=== PATIENT | female | born 1960 | race Caucasian/White ===

== ENCOUNTER 2017-03-07 14:31 | Emergency (ER) | payer OTHER ==
[~2017-03-07] VITALS: Wt 70.9 kg
--- NOTE | 2017-03-07 15:14 | ERA ---
ER Documentation Chief Complaint Date/Time DATE: 03/07/17 TIME: 15:04 Chief Complaint cornejo, dizziness, bp at home 190/140 HPI 56-year-old female with a chief complaint of hypertension. Patient states she took her blood pressure at home and it was 180/140. Patient takes benazepril. Patient states that she has not missed any of her medications. Takes aspirin daily. Patient has a history of hypertension hyperlipidemia. Patient states the dizziness occurred 3 days ago and is worse with movement of the head. Patient has no other major complaints and describes no other associated manifestations. No aggravating or alleviating factors disclosed. Nursing notes have been reviewed and are consistent with a history given. ROS All systems reviewed and are negative except as per history of present illness. PMhx/Soc History of Surgery: Yes () Anesthesia Reaction: No Hx Neurological Disorder: No Hx Respiratory Disorders: No Hx Cardiac Disorders: No Hx Psychiatric Problems: No Hx Miscellaneous Medical Probl: Yes (HTN) Hx Alcohol Use: No Hx Substance Use: No Hx Tobacco Use: No Smoking Status: Never smoker Physical Exam Vitals Vital Signs Date Time Temp Pulse Resp B/P Pulse Ox O2 Delivery O2 Flow Rate FiO2 03/07/17 14:33 98.0 111 20 198/78 100 Physical Exam Const: [] Head: Atraumatic Eyes: Normal Conjunctiva ENT: Normal External Ears, Nose and Mouth. Neck: Full range of motion..~ No meningismus. Resp: Clear to auscultation bilaterally Cardio: Regular rate and rhythm, no murmurs Abd: Soft, non tender, non distended. Normal bowel sounds Skin: No petechiae or rashes Back: No midline or flank tenderness Ext: No cyanosis, or edema Neur: Awake and alert Psych: Normal Mood and Affect Results 24 hrs Laboratory Tests Test 03/07/17 15:30 Urine Color COLORLESS Urine Clarity CLEAR Urine pH 7.0 Urine Specific [place] 1.003 Urine Ketones NEGATIVEmg/dL Urine Nitrite NEGATIVEmg/dL Urine Bilirubin NEGATIVEmg/dL Urine Urobilinogen NEGATIVEmg/dL Urine Leukocyte Esterase NEGATIVELeu/ul Urine Hemoglobin NEGATIVEmg/dL Urine Glucose NEGATIVEmg/dL Urine Total Protein NEGATIVEmg/dl Procedures/MDM 56-year-old female with a history of hypertension presents after reading elevated blood pressure at home. Blood pressure taken today was within normal limits of 198/78. Presents to the case to my attending. Suggested EKG and urinalysis. EKG and urinalysis were obtained, both were unremarkable. The EKG was read by my attending as normal rate, will access, no T-wave abnormalities, no ST elevations or depressions, and good baseline. Most likely diagnosis is asymptomatic hypertension. Do not suspect any infectious or intracranial pathologies. I have spoke with the patient regarding their condition and future management. They have verbally responded that they understand their status and treatment plan. The patients vitals are stable, and their current condition is appropriate for discharge. The patient will be given discharge instructions with return precautions. Departure Diagnosis: Primary Impression: Hypertension Qualified Code: I10 - Hypertension, unspecified type Condition: Stable Additional Instructions: Follow up with your PCP within the next 1-3 days for a more thorough evaluation and a possible referral to a specialist. Return the the emergency department immediately if symptoms worsen or change. If you have any questions regarding medications, ask your pharmacist or us before you leave. If any adverse reactions occur while taking your medications, discontinue the treatment and return to the emergency department immediately. Take your medications as directed, and complete the entire course of treatment. SHARMILA REID PA-C Mar 07, 2017 15:14
[2017-03-07 15:42] LABS: ADD UMIC NO; UR ASCORBIC ACID NEGATIVE (NEGATIVE); UR BILIRUBIN (Dip) NEGATIVE (NEGATIVE); UR BLOOD (Dip) NEGATIVE (NEGATIVE); UR CLARITY CLEAR (CLEAR); UR COLOR COLORLESS (YELLOW); UR GLUCOSE (Dip) NEGATIVE (NEGATIVE); UR KETONES (Dip) NEGATIVE (NEGATIVE); UR LEUKOCYTE ESTERASE (Dip) NEGATIVE Leu/ul (NEGATIVE); UR NITRITE (Dip) NEGATIVE (NEGATIVE); UR SPECIFIC GRAVITY (Dip) 1.003 (1.003-1.030); UR TOTAL PROTEIN (Dip) NEGATIVE (NEGATIVE); UR UROBILINOGEN (Dip) NEGATIVE (NEGATIVE)
[2017-03-07 16:11] VITALS: BP 168/80; PULSE 82; RESP 19
== END 2017-03-07 16:10 | disposition home or self-care (01) ==
LOC: FTE 14:31
DX: I10 Essential (primary) hypertension (principal)
CPT/HCPCS: 81003; 93005; Z7502